=== PATIENT | female | born 1940 | race Caucasian/White ===

== ENCOUNTER 2016-05-04 12:04 | Inpatient (IN) | payer OTHER ==
[2016-05-04 13:44] LABS: % IMMATURE GRANULYOCYTES 0.3 % (0.0-1.1); ABSOLUTE IMMATURE GRANULOCYTES 0.02 10^3/uL (0.00-0.10); ADD DIFF? NO; ADD MORPH? NO; ADD SCAN? NO; ATYPICAL LYMPHOCYTE FLAG 0 (0-99); FRAGMENT RBC FLAG 0 (0-99); HEMATOCRIT 42.5 % (38.0-47.0); HEMOGLOBIN 13.9 g/dL (12.6-16.3); LEFT SHIFT FLG 10 (0-99); LIPEMIA HEMOLYSIS FLAG 80 (0-99); MEAN CELL HEMOGLOBIN 31.1 pg (27.9-34.1); MEAN CELL HEMOGLOBIN CONCENTR. 32.7 g/dL (32.4-36.7); MEAN CELL VOLUME 95.1 fL (81.5-99.8); MEAN PLATELET VOLUME 9.6 fL (8.7-11.7); PLATELET CLUMPS FLAG 10 (0-99); PLATELET COUNT 210 10^3/uL (150-400); RED BLOOD CELL COUNT 4.47 10^6/uL (4.18-5.33); RED CELL DISTRIBUTION WIDTH 13.3 % (11.5-15.2)
[2016-05-04] MEDS ORDERED: ACETAMINOPHEN 325 MG TAB PO ONE (13:44)
--- NOTE | 2016-05-04 13:44 | EDPHY ---
H & P Time Seen by Provider: 05/04/16 12:44 HPI/ROS: CHIEF COMPLAINT: Cough, hypoxia HISTORY OF PRESENT ILLNESS: 75-year-old female presents with cough and hypoxia. Onset of sore throat and productive cough yesterday. Associated with chills and subjective fever. She went to the clinic today because of the sore throat and they noticed her oxygen saturation was 80% on room air. Duoneb and Prednisone 60mg orally given without change. Flu swab negative. She feels excessively sleepy today. She denies change in shortness of breath. She has ongoing shortness of breath which is intermittent and sometimes occurs when she gets up suddenly from a chair. She has a 2 year history of cough and has been diagnosed with COPD. REVIEW OF SYSTEMS: Eyes: No visual changes ENT: No sore throat Cardiac: No chest pain Gastrointestinal: No nausea, no vomiting, no abdominal pain Genitourinary: no dysuria Musculoskeletal: No leg pain or swelling Skin: No rash Neurological: No headache, no weakness Psychiatric: No depression Past Medical/Surgical History: COPD Social History: No alcohol Smoking Status: Former smoker Physical Exam: General Appearance: Drowsy, normal respiratory rate Eyes: Pupils equal and round, no conjunctival pallor or injection ENT, Mouth: Mucous membranes moist Neck: Normal inspection Respiratory: rales at bases bilaterally Cardiovascular: Regular rate and rhythm Gastrointestinal: Abdomen is soft and nontender Neurological: A&O, nonfocal, normal gait Skin: Warm and dry, no rash Extremities: no tenderness Psychiatric: Mood and affect normal Constitutional: Initial Vital Signs Temperature (C) 38.1 C 05/04/16 12:15 Heart Rate 72 05/04/16 12:15 Respiratory Rate 18 05/04/16 12:15 Blood Pressure 100/65 05/04/16 12:15 O2 Sat (%) 81 L 05/04/16 12:15 O2 Delivery Mode Nasal Cannula O2 (L/minute) 1 Allergies/Adverse Reactions: No Known Allergies Allergy (Unverified 05/04/16 15:19) Home Medications: Medication Instructions Recorded Albuterol [Proventil Inhaler HFA 2 puffs IH Q6H PRN 05/04/16 (*)] Cholecalciferol Vit D3 [Vitamin D3 3,000 units PO DAILY 05/04/16 (*)] Clobetasol 0.05% [Temovate 1 kirti TP Q3D PRN 05/04/16 Ointment] Estradiol [Estrace Vaginal (*)] 1 gm VG Q4D 05/04/16 Herbals/Supplements -Info Only 1 ea PO DAILY 05/04/16 Ibuprofen [Motrin (*)] 200 mg PO Q6H PRN 05/04/16 Lisinopril [Zestril 20 mg (*)] 20 mg PO HS 05/04/16 Multivitamins [Multivitamin (*)] 1 each PO DAILY 05/04/16 Nature-Throid 32.5 Mg Tablet 32.5 mg PO DAILY@05/04/16 Polyethylene Glycol 3350 [Miralax 17 gm PO DAILY PRN 05/04/16 17 gm (*)] Triamcinolone 0.5% [Triamcinolone 1 kirti TP BID PRN 05/04/16 0.5% Cream (*)] Umeclidinium Brm/Vilanterol Tr 1 puffs IH DAILY 05/04/16 [Anoro Ellipta 62.5-25 Mcg INH] Medical Decision Making - Diagnostics Imaging: CT pulmonary angiogram read by Dr. Martinez reveals a diffuse bilateral reticulonodular pattern, consistent with bronchiolitis and bronchiectasis. No definite infiltrate. ED Course/Re-evaluation: Patient presents with flu-like symptoms and hypoxia. Oxygen saturation 96% on 4 L by nasal cannula. Given her excessive drowsiness, an ABG was performed to rule out CO2 retention, PC02 44. Chest x-ray reveals no acute infiltrate. Given that D-dimer is positive and she has a nodular pattern on her chest x-ray , CT pulmonary angiogram was ordered. There is no evidence acute pulmonary embolism on CT scan. She does have a chronic appearing reticular nodule pattern on the CT scan, consistent with bronchiectasis and bronchiolitis. Flu swab returned as positive for influenza B. Tamiflu 75 mg orally given. She already received steroids in the clinic and does not have wheezing on exam. She received one nebulized breathing treatment in the ED. Blood cultures drawn , but no abx given, since there is no evidence of bacterial pneumonia. The hospitalist service was consulted for influenza and hypoxia. Differential Diagnosis: includes though not limited to PE, pneumonia, PTX, empyema. - Data Points Laboratory Results: Laboratory Results 05/04/16 13:30 05/04/16 13:30 Microbiology Results: MICROBIOLOGY 05/04/16 13:45 Blood Blood Culture - Preliminary 05/04/16 13:30 Blood Blood Culture - Preliminary Medications Given: Discontinued Medications Acetaminophen (Tylenol) 650 mg PO EDNOW ONE Stop: 05/04/16 13:45 Last Admin: 05/04/16 13:56 Dose: 650 mg Albuterol (Proventil Neb) 3 ml IH EDNOW ONE Stop: 05/04/16 16:05 Last Admin: 05/04/16 16:15 Dose: 3 ml Sodium Chloride (Ns) 1,000 mls @ 0 mls/hr IV ONCE ONE PRN Reason: Wide Open Stop: 05/04/16 14:06 Last Admin: 05/04/16 14:05 Dose: 1,000 mls Sodium Chloride (Ns) 1,000 mls @ 100 mls/hr IV CONT BERNA Stop: 05/05/16 20:14 Last Admin: 05/05/16 10:47 Dose: 1,000 mls Sodium Chloride (Ns) 250 mls @ 250 mls/hr IV ONCE ONE Stop: 05/05/16 18:25 Last Admin: 05/05/16 22:08 Dose: 250 mls Ibuprofen (Motrin) 200 mg PO Q6H PRN PRN Reason: Pain, Inflammatory Stop: 10/31/16 16:58 Last Admin: 05/05/16 12:59 Dose: 200 mg Oseltamivir Phosphate (Tamiflu) 75 mg PO EDNOW ONE Stop: 05/04/16 15:46 Last Admin: 05/04/16 15:59 Dose: 75 mg Departure - Departure Disposition: [facility] Inpatient Acute Clinical Impression: Influenza B, Hypoxia COPD (chronic obstructive pulmonary disease) Qualifiers: COPD type: unspecified COPD Qualified Code(s): J44.9 - Chronic obstructive pulmonary disease, unspecified Condition: Fair
[2016-05-04 13:53] LABS: INR 1.05 (0.83-1.16); PROTIME(PATIENT) 13.6 SEC (12.0-15.0)
[2016-05-04 13:54] LABS: APTT 29.9 SEC (23.0-38.0)
[2016-05-04] MEDS ORDERED: NS 1,000 ML IV ONE (14:05)
[2016-05-04 14:09] LABS: BASE EXCESS 0.5 mEq/L (-2.5-2.5); BICARBONATE 25 mEq/L (22-26); MEASURED OXYGEN SATURATION 95 % (92-95); PCO2 44 mmHg (34-38); PO2 77 mmHg (65-75); TCO2 27 mEq/L (23-27)
[2016-05-04 14:12] LABS: ANION GAP 10 mEq/L (8-16); BILIRUBIN,TOTAL 0.7 mg/dL (0.1-1.4); CALCIUM 8.7 mg/dL (8.5-10.4); CARBON DIOXIDE 28 mEq/l (22-31); CHLORIDE 97 mEq/L (97-110); CREATININE 0.9 mg/dL (0.6-1.0); GLOMERULAR FILTRATION RATE > 60; GLUCOSE 95 mg/dL (70-100); POTASSIUM 4.5 mEq/L (3.5-5.2); SODIUM 135 mEq/L (134-144)
[2016-05-04] MEDS ORDERED: IOPAMIDOL (ISOVUE-370) 150 ML BTL IV ONE (14:33)
[2016-05-04] MEDS ORDERED: OSELTAMIVIR PHOSPHATE 75 MG CAP PO ONE (15:45)
[2016-05-04] MEDS ORDERED: ALBUTEROL 3 ML DEYVIAL IH ONE (16:04)
[2016-05-04] MEDS ORDERED: TRIAMCINOLONE 0.5% 15GM CREAM TP PRN (16:59)
[2016-05-04] MEDS ORDERED: POLYETHYLENE GLYCOL 3350 17 GM PKT PO PRN (16:59)
[2016-05-04] MEDS ORDERED: CLOBETASOL 0.05% 15 GM OINT TUBE TP PRN (16:59)
[2016-05-04] MEDS ORDERED: ACETAMINOPHEN 325 MG TAB PO PRN (17:07)
[2016-05-04] MEDS ORDERED: IPRATROPIUM/ALBUTEROL 3 ML DEYVIAL IH PRN (17:07)
[2016-05-04] MEDS ORDERED: ONDANSETRON 4 MG/2 ML VIAL IVP PRN (17:07)
--- NOTE | 2016-05-04 17:32 | GHP ---
DATE OF ADMISSION: 05/04/2016 CHIEF COMPLAINT: Shortness of breath and cough. HISTORY OF PRESENT ILLNESS: A 75-year-old female with history of pneumonia, a former smoker, went t o the clinic today due to sore throat where she was found to have oxygen saturation of 80% on room a ir. She tells me she has had a dry annoying cough the past few months. Over the past few days the cough has become productive with worsening shortness of breath, as well as some fevers and joint aches. She denies any chest pain. In the emergency department she was found to be positive for influenza B. PAST MEDICAL HISTORY: 1. Pneumonia. 2. Tobacco use. 3. Reactive airway disease and possible chronic obstructive pulmonary disease. 4. Hypertension. 5. Hypothyroidism. PAST SURGICAL HISTORY: 1. Bilateral total knee arthroplasty. 2. Appendectomy. 3. Hand surgery. HOME MEDICATIONS: Were reviewed, refer to [employer] for details. ALLERGIES: No known drug allergies. SOCIAL HISTORY: She lives in [place]. She has a 50-pack year smoking history, but quit smoking some time ago. She denies any alcohol use. FAMILY HISTORY: Significant for COPD. REVIEW OF SYSTEMS: Comprehensive 10-point review of systems was done and is negative except for as mentioned in the HPI. PHYSICAL EXAM: VITAL SIGNS: Blood pressure 105/60, pulse 63, respiratory rate 20, O2 sat 100% on 3 L. Temperature afebrile. Room air saturation was 81% on room air. GENERAL: No acute distress. HEAD: Normocephalic, atraumatic. EYES: PERRLA. Sclerae anicteric. NECK: Supple. No lymphadenop athy. CARDIOVASCULAR: S1-S2, no JVD. No lower extremity edema. PULMONARY: Lungs are clear with d iminished breath sounds in bilateral bases. No wheezes or rales. No dullness to percussion. There is slight increased respiratory effort. There is a persistent cough. ABDOMEN: Soft, nontender, no ndistended. No guarding or rebound tenderness. Normoactive bowel sounds. EXTREMITIES: No clubbin g or cyanosis. NEURO: Cranial nerves 2-12 grossly intact. No focal motor or sensory deficits. SK IN: Clear, no rashes. DIAGNOSTICS: Influenza A and B were positive for flu B by PCR. WBC 7, hemoglobin 13.9, hematocrit 42.5, platelets 210. D-dimer was elevated at 0.61. Sodium 135, potassium 4.5, chloride 97, CO2 28, BUN 24, creatinine 0.9, glucose 95. Chest CT, which I visualized, as well as reviewed the radiology report, was negative for PE. There is mild atherosclerotic aorta with borderline aneurysm. There is bilateral bronchiolitis with bilat eral peribronchial thickening with cylindrical bronchiectasis, reticular nodular opacities in bilate ral upper lobes, as well as the posterior segment of the right upper and superior segments of the bi lateral lower lobes. There is no pleural effusion, pneumothorax or significant adenopathy. ASSESSMENT AND PLAN: This is a 75-year-old female presenting with: 1. Acute hypoxemic respiratory failure in the setting of CT of the chest showing bilateral bronchio litis with bilateral peribronchial thickening, bronchiectasis, and reticulonodular opacities in bila teral upper lobes, possibly representing acute viral pneumonitis versus underlying bronchiectasis an d exacerbation of underlying chronic obstructive pulmonary disease. PLAN: 1. The patient will be placed on observation, where she will be monitored with continuous pulse oxi metry. I will ask for Pulmonology to see her in the morning. We will continue with bronchodilator treatment and consider adding steroids if her respiratory status is not improving over night. 2. Influenza B. The patient has been started on Tamiflu in the emergency department which will be continued. 3. History of hypertension that appears well-controlled. 4. Continue home medications and monitor. /[id number]/MODL
[2016-05-04] MEDS: IBUPROFEN 200 MG TAB PO PRN (17:42)
[2016-05-04] MEDS: guaiFENesin 600 MG TAB.ER PO SCH (20:35)
[2016-05-04] MEDS: CEPACOL LOZENGE PO PRN (20:39)
[2016-05-04] MEDS ORDERED: LISINOPRIL 20 MG TAB PO SCH (21:00)
[2016-05-05] MEDS: IBUPROFEN 200 MG TAB PO PRN ×3 (04:58→18:35)
[2016-05-05] MEDS: NATURE THROID 32.5 MG PO SCH (04:58)
[2016-05-05] MEDS: guaiFENesin 600 MG TAB.ER PO SCH ×2 (08:46→20:23)
[2016-05-05] MEDS: OSELTAMIVIR PHOSPHATE 75 MG CAP PO SCH ×2 (08:46→17:28)
[2016-05-05] MEDS: CHOLECALCIFEROL VIT D3 2,000 UNITS TAB/CAP PO SCH (08:46)
[2016-05-05] MEDS: MULTIVITAMINS 1 EACH TAB PO SCH (08:46)
[2016-05-05] MEDS: ENOXAPARIN 40 MG/0.4 ML SYR SC SCH ×2 (08:46→08:49)
[2016-05-05] MEDS: Umeclidinium Brm/Vilanterol Tr [Anoro Ellipta 62.5-25 Mcg Inh] IH SCH (08:47)
[2016-05-05] MEDS ORDERED: Herbals/Supplements -Info Only PO SCH (09:00)
[2016-05-05] MEDS ORDERED: ESTRADIOL 42.5 GM CRTUBE VG SCH (09:00)
--- NOTE | 2016-05-05 09:03 | HOSPPROG ---
Hospitalist Progress Note Assessment/Plan: Patient is a 75-year-old female who presented to the emergency room with shortness of breath and cough. Patient has a history of pneumonia, a former smoker. Today is my 1st encounter with the patient. Chart reviewed. * Acute hypoxemic respiratory failure - acute viral pneumonitis verses underlying bronchiectasis and exacerbation of underlying COPD - patient does not want to be placed on steroids - will continue supportive therapy with bronchodilators - pulmonology to see * influenza B - on treatment * hypertension - currently hypotensive / place monitors on when to hold her blood pressure medication -will hydrate due to the hypotension * DVT prophylaxis - low molecular weight heparin * plan. Patient will require another midnight stay due to O2 needs as well as low blood pressure. Hydrate her overnight and recheck labs in the morning. Will wait for further input from Dr. Reyez Subjective: Reina is complaining of a persistent cough. She also has a sore throat. Objective: Vital Signs Temp Pulse Resp BP Pulse Ox 36.9 C 60 16 93/49 L 93 05/05/16 08:11 05/05/16 08:55 05/05/16 08:11 05/05/16 08:55 05/05/16 08:55 05/04/16 05/05/16 05/06/16 05:59 05:59 05:59 Intake Total 1300 Output Total 175 Balance 1125 PT 13.6 SEC (12.0-15.0) 05/04/16 13:30 INR 1.05 (0.83-1.16) 05/04/16 13:30 - Physical Exam Constitutional: obese, uncomfortable Eyes: PERRL Ears, Nose, Mouth, Throat: hearing normal Cardiovascular: regular rate and rhythym Respiratory: no respiratory distress, reduced air movement ( Bibasilar) Gastrointestinal: normoactive bowel sounds Skin: warm Musculoskeletal: no muscle tenderness Neurologic: AAOx3 Psychiatric: interacting appropriately, not anxious ICD10 Worksheet Patient Problems: Problems Problem Status Onset COPD (chronic obstructive pulmonary disease) Acute Hypoxia Acute Influenza B Acute
[2016-05-05] MEDS ORDERED: NS 1,000 ML IV SCH (10:15)
[2016-05-05] MEDS ORDERED: NS 250 ML IV ONE (17:26)
[2016-05-05] MEDS: PANTOPRAZOLE SODIUM 40 MG TAB PO SCH (18:04)
[2016-05-05] MEDS: IPRATROPIUM/ALBUTEROL 3 ML DEYVIAL IH SCH ×2 (19:07→22:34)
[2016-05-05] MEDS: CEPACOL LOZENGE PO PRN (20:24)
--- NOTE | 2016-05-05 21:28 | GCON ---
PULMONARY CONSULTATION DATE OF CONSULTATION: 05/05/2016 REASON FOR CONSULTATION: Shortness of breath, hypoxemia associated with influenza B, pneumonia. HISTORY: The patient is a pleasant 75-year-old who was admitted 2 days ago with increasing shortnes s of breath and hypoxemia. She was found to have influenza B on admission. CT scan of the chest wa s done, which showed some mild cylindrical bronchiectasis mostly in the upper lobes with some small areas of nodular infiltrates. No consolidative or diffuse pneumonia was present. She has had some cough and mucus, fatigue and malaise, fevers and achy joints. She does have a history of tobacco abuse. She started smoking when she was 13 and smoked for about 25 years up to 2 packs of cigarettes per day. She has never been definitely told she had COPD. No emphysema was seen on recent CT scan. Since admission, she has been treated with Tamiflu and duo nebs. She does not want to be placed on systemic steroids or inhaled steroids. She has recently been taking Anoro. She has a variety of ot her inhalers at home including inhaled steroids, which she has tried in the past without significant benefit. She is feeling somewhat better since admission. She remains on low-flow oxygen at 1 L. She will desat into the 80s without oxygen. She remains quite fatigued, has a cough and congestion, but is unable to bring up any significant mucus at this time. PAST MEDICAL HISTORY: Remarkable for hypertension and hypothyroidism, reactive airways disease, and possible COPD. PAST SURGICAL HISTORY: Bilateral knee replacements, appendectomy, hand surgery. SOCIAL HISTORY: The patient is for the 2nd time, has children and stepchildren. 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 She is no longer smoking. Significant alcohol is denied. FAMILY HISTORY: Noncontributory. REVIEW OF SYSTEMS: Negative except as mentioned above. She denies any heart disease, reflux or GI problems, thromboembolic disease, etc. MEDICATIONS: At home include Anoro, lisinopril, vaginal estradiol, as needed albuterol, and various p.r.n. medications. PHYSICAL EXAMINATION: GENERAL: Reveals a pleasant woman, somewhat overweight, resting comfortably in bed. She has an intermittent congested cough. VITAL SIGNS: Blood pressure is approximately 100 /50, heart rate 60 and regular, saturations on 1 L are in the low 90s. She is afebrile. HEENT: Un remarkable for lymphadenopathy or thyromegaly. There is no jugular venous distention. There is no pharyngitis. PULMONARY: The chest reveals bibasilar rales approximately 1/4 to 1/3 toward the rita om. These are fairly scattered. With cough there is central congestion and expiratory coarseness/w heezing. There are no kiera rhonchi. With forced exhalation, she does have some scattered bilatera l wheezes. HEART: Regular in rate and rhythm. There is no gallop. P2 appears normal. There is a soft systolic murmur. ABDOMEN: Soft, nontender. Bowel sounds are present. There is no obvious o rganomegaly. EXTREMITIES: Unremarkable for significant edema. There are no cords, no tenderness. NEUROLOGIC: Examination is nonfocal/intact. CT scan of the chest is as outlined above. It was done with contrast, and there is no evidence of t hromboembolic disease. Bronchial wall thickening, bronchiectasis, and scattered fairly minimal uppe r lobe areas of reticular infiltrate are present. LABORATORY: White blood cell count 7000, hematocrit 42. Platelets are normal. PT and PTT were nor mal on admission. Arterial blood gas on 4 L yesterday showed a pH of 7.38, pCO2 44, and pO2 of 77. Chemistries are within normal limits. BNP is normal. PCR was positive for influenza B. ASSESSMENT: 1. Influenza B, bronchopneumonia. There does appear to be diffuse airway involvement, as she has s ignificant congestion and wheezing. There also appears to be parenchymal involvement with scattered areas of reticular nodular infiltrate. Separate from this, she has evidence of some bronchiectasis and chronic airway thickening likely secondary to chronic lung disease and previous tobacco abuse. She is being treated with Tamiflu and is doing well. Oxygen requirements are not excessive. I do believe that she would feel better and improve faster with steroids, even inhaled steroids, however, she is against this treatment at the present time. Bronchodilator therapy is appropriate and will be continued. Tamiflu will be continued. 2. Probable chronic obstructive pulmonary disease. She does have a significant tobacco history, page s been on inhalers in the past, and likely does have a component of significant chronic obstructive pulmonary disease. Pulmonary function studies will be needed. These can be done as an outpatient. Screening spirometry can be done here and will be requested. She does have an exacerbation seconda ry to the influenza B infection. Please see the comments above. 3. Bronchiectasis. She does have mild cylindrical bronchiectasis. The associated nodularity may b e secondary to influenza B or may be inflammatory nodules associated with her bronchiectasis. Her b ronchiectasis is somewhat atypical as it involves upper lobes posteriorly and the upper part of the lower lobes. Unusual organisms, JANETTE, or fungal organisms could be involved chronically in a relativ loy subclinical fashion, however, I think this is unlikely. However, further decisions regarding th is can be made as an outpatient after she recovers from her current infection. Bronchoscopy is not indicated. PLANS/RECOMMENDATIONS: Current treatment in the hospital will be continued. I anticipate she will need another couple a days of inpatient treatment. Bronchodilator therapy and Tamiflu is appropriat e. I will discuss inhaled steroids again with her tomorrow, including possibly a trial of nebulized budesonide. Bedside spirometry will be obtained. Further plans and recommendations will be made based on her progress over the next 12-24 hours. Out patient followup in the future will be arranged. /[id number]/MODL
[2016-05-06] MEDS: IPRATROPIUM/ALBUTEROL 3 ML DEYVIAL IH SCH ×3 (05:43→16:43)
[2016-05-06] MEDS: NATURE THROID 32.5 MG PO SCH ×2 (05:58→17:53)
[2016-05-06] MEDS: guaiFENesin 600 MG TAB.ER PO SCH ×2 (07:50→20:09)
[2016-05-06] MEDS: OSELTAMIVIR PHOSPHATE 75 MG CAP PO SCH ×2 (07:51→17:14)
[2016-05-06] MEDS: MULTIVITAMINS 1 EACH TAB PO SCH (07:51)
[2016-05-06] MEDS: PANTOPRAZOLE SODIUM 40 MG TAB PO SCH (07:52)
[2016-05-06] MEDS: CHOLECALCIFEROL VIT D3 2,000 UNITS TAB/CAP PO SCH (07:52)
[2016-05-06] MEDS: ENOXAPARIN 40 MG/0.4 ML SYR SC SCH (07:54)
[2016-05-06] MEDS: IBUPROFEN 200 MG TAB PO PRN (08:00)
--- NOTE | 2016-05-06 10:03 | HOSPPROG ---
Hospitalist Progress Note Assessment/Plan: Patient is a 75-year-old female who presented to the emergency room with shortness of breath and cough. Patient has a history of pneumonia, a former smoker. Dr Reyez and myself met w the patient. Dr Reyez discussed benefits of oral steroids, inhaled steroids. * Acute hypoxemic respiratory failure - due to acute viral pneumonitis verses underlying bronchiectasis and exacerbation of underlying COPD - patient is reluctant to start on steroids, but willing to do short burst ( total of 8 days)/ starting w 60 mg today - will continue supportive therapy with bronchodilators * influenza B - on treatment * hypertension -hold lisinopril / having low bp *hypotension -bp improved today after receiving iv fluids and bolus yesterday * DVT prophylaxis - low molecular weight heparin * plan. start steroids today/ if improved can go in the next 1-2 days Subjective: Reina is still not feeling well/ not quite ready to be dc. Objective: Vital Signs Temp Pulse Resp BP Pulse Ox 37.0 C 63 18 113/60 90 L 05/06/16 07:56 05/06/16 07:56 05/06/16 07:56 05/06/16 07:56 05/06/16 07:56 05/05/16 05/06/16 05/07/16 05:59 05:59 05:59 Intake Total 1972 Balance 1972 PT 13.6 SEC (12.0-15.0) 05/04/16 13:30 INR 1.05 (0.83-1.16) 05/04/16 13:30 - Physical Exam Constitutional: no apparent distress, appears nourished, not in pain Eyes: PERRL Ears, Nose, Mouth, Throat: hearing normal Cardiovascular: regular rate and rhythym, no murmur, rub, or gallop Respiratory: no respiratory distress, other (crackles bibasilar) Gastrointestinal: normoactive bowel sounds Skin: warm, normal color Musculoskeletal: full muscle strength Neurologic: AAOx3 Psychiatric: interacting appropriately, anxious ICD10 Worksheet Patient Problems: Problems Problem Status Onset COPD (chronic obstructive pulmonary disease) Acute Hypoxia Acute Influenza B Acute Transitional Care Acute
[2016-05-06] MEDS: Umeclidinium Brm/Vilanterol Tr [Anoro Ellipta 62.5-25 Mcg Inh] IH SCH (10:07)
[2016-05-06] MEDS: predniSONE 20 MG TAB PO SCH (10:57)
--- NOTE | 2016-05-06 17:13 | SOAPPROG ---
SOAP Progress Note Assessment/Plan: Assessment: Influenza B bronchopneumonia with associated cough, hypoxemia, mild reticular pulmonary infiltrates. COPD with a component of reversible airways obstruction, with exacerbation secondary to the above. Cylindrical bronchiectasis, primarily in the upper lobes posteriorly. This may be associated with reticular nodular infiltrates, fairly mild. However these infiltrates may be associated with her acute influenza B infection. Outpatient follow-up evaluation will determine.... Plan: Continue bronchodilator treatments and Tamiflu. Continue oxygen as needed to keep saturations in the upper 80s. Recommend a short prednisone burst and taper. This was discussed with the patient at length and she is now agreeable. She will start on 60 mg for a couple a days then taper rapidly. Hopefully, improvement will be seen within the next 24 hours and she can be discharged home for the remainder of her convalescence. Subjective: Still with paroxysms of coughing, shortness of breath, mild hypoxemia. Unable to bring up much sputum. Continues to feel sick, Achy, fatigueds. Objective: Vital Signs Temp Pulse Resp BP Pulse Ox 36.8 C 61 20 135/86 H 94 05/06/16 11:06 05/06/16 16:48 05/06/16 16:48 05/06/16 16:48 05/06/16 16:48 05/05/16 05/06/16 05/07/16 05:59 05:59 05:59 Intake Total 1972 Balance 1972 PT 13.6 SEC (12.0-15.0) 05/04/16 13:30 INR 1.05 (0.83-1.16) 05/04/16 13:30 Physical Exam - Physical Exam General Appearance: alert, no apparent distress EENT: other (Nasal cannula 1-2 L) Neck: normal inspection (No obvious JVD), No lymphadenopathy (R), No lymphadenopathy (L), No thyromegaly Respiratory: decreased breath sounds, rales (By basilar rales persist), wheezing (Mild, scattered and expiration), No rhonchi (But central congestion with cough) Cardiac/Chest: regular rate, rhythm Abdomen: normal bowel sounds, non-tender, soft Back: Normal inspection Skin: normal color, warm/dry Lymphatic: no adenopathy Extremities: No pedal edema Neuro/Psych: no motor/sensory deficits, No cognition abnormalities ICD10 Worksheet Patient Problems: Problems Problem Status Onset Transitional Care Acute Influenza B Acute Hypoxia Acute COPD (chronic obstructive pulmonary disease) Acute
[2016-05-06] MEDS: CEPACOL LOZENGE PO PRN (20:09)
[2016-05-07] MEDS: IPRATROPIUM/ALBUTEROL 3 ML DEYVIAL IH SCH ×3 (00:03→11:06)
[2016-05-07] MEDS: CEPACOL LOZENGE PO PRN (04:00)
[2016-05-07 07:17] VITALS: O2SAT 92
[2016-05-07] MEDS: NATURE THROID 32.5 MG PO SCH (07:23)
[2016-05-07] MEDS: predniSONE 20 MG TAB PO SCH (08:02)
[2016-05-07] MEDS: CHOLECALCIFEROL VIT D3 2,000 UNITS TAB/CAP PO SCH (08:03)
[2016-05-07] MEDS: PANTOPRAZOLE SODIUM 40 MG TAB PO SCH (08:03)
[2016-05-07] MEDS: guaiFENesin 600 MG TAB.ER PO SCH (08:04)
[2016-05-07] MEDS: OSELTAMIVIR PHOSPHATE 75 MG CAP PO SCH (08:04)
[2016-05-07] MEDS: ENOXAPARIN 40 MG/0.4 ML SYR SC SCH (08:05)
[2016-05-07] MEDS: Umeclidinium Brm/Vilanterol Tr [Anoro Ellipta 62.5-25 Mcg Inh] IH SCH (08:09)
[2016-05-07] MEDS: MULTIVITAMINS 1 EACH TAB PO SCH (10:22)
[2016-05-07 11:41] VITALS: BP 129/72; PULSE 72; RESP 16; TEMP 98.2
--- NOTE | 2016-05-07 17:13 | GDS ---
[f rep st] DISCHARGE SUMMARY DISCHARGE DIAGNOSES: 1. Influenza B with bronchopneumonia. 2. Acute hypoxemic respiratory failure. 3. Hypertension. 4. Hypotension. CONSULTATIONS: Dr. Reyez of Pulmonology. STUDIES AND PROCEDURES DONE: CT angio of the chest. PHYSICAL EXAMINATION: GENERAL: The patient is alert. VITAL SIGNS: Afebrile, 36.8, pulse is 72, r espiratory rate 16, blood pressure is 129/72. She is saturating 92% on room air. I have seen and evaluated the patient on the day of discharge. I have also discussed her dispositio n with Dr. Reyez of Pulmonology. HOSPITAL COURSE: The patient is a 75-year-old female who presented to the emergency room with compl aints of shortness of breath. She was evaluated and diagnosed with: 1. Acute hypoxemic respiratory failure. This is secondary to the patient's acute illness. She did receive a consultation from Pulmonology. She was initiated on steroids and supportive management. She was also treated with steroids. 2. Influenza B. The patient has been initiated on Tamiflu and has responded well. 3. Hypertension. We re-initiated her home medications at the time of disposition. 4. Hypotension. This has resolved during this hospitalization. DISPOSITION: The patient will be discharged home independently. I have reviewed her disposition wi th Dr. Kevin Reyez, who will continue her bronchodilators and Tamiflu at the time of disposition. She will also continue prednisone in the outpatient setting. I have provided her prescriptions for prednisone as well as Tamiflu. I have not adjusted any of her previously-prescribed home medication s to the best of my knowledge. Followup will be with her primary care physician, Dr. Nida Medina , as well as Dr. Kevin Reyez. I have spent greater than 35 minutes in the care, coordination, and management of the patient's disp osition. /[id number]/MODL
--- NOTE | 2016-05-07 18:07 | SOAPPROG ---
SOAP Progress Note Assessment/Plan: Assessment: Influenza B bronchopneumonia with associated cough, hypoxemia, mild reticular pulmonary infiltrates. COPD with a component of reversible airways obstruction, with exacerbation secondary to the above. Cylindrical bronchiectasis, primarily in the upper lobes posteriorly. This may be associated with reticular nodular infiltrates, fairly mild. However these infiltrates may be associated with her acute influenza B infection. Outpatient follow-up evaluation will determine.... Plan: Okay for discharge today to finish Tamiflu. Prednisone taper with 40 mg for 2 days, 20 for 2 days, 10 for 2 days then off. I gave her my office number. She is to call for a follow-up appointment with pulmonary function tests to be done in approximately 4 weeks. Further evaluation regarding her chronic lung disease will be done at that time. Follow-up CT scan will be performed in the future. For now she is to continue on Anoro, and albuterol as needed at home. She has both of these. Subjective: Doing better overall. Coughing last night. Off oxygen. Feels better. Objective: Vital Signs Temp Pulse Resp BP Pulse Ox 36.8 C 72 16 129/72 H 92 05/07/16 11:40 05/07/16 11:40 05/07/16 11:40 05/07/16 11:40 05/07/16 11:40 05/06/16 05/07/16 05/08/16 05:59 05:59 05:59 Intake Total 1972 Balance 1972 PT 13.6 SEC (12.0-15.0) 05/04/16 13:30 INR 1.05 (0.83-1.16) 05/04/16 13:30 Physical Exam - Physical Exam General Appearance: alert, no apparent distress EENT: other (On room air: 92%) Neck: normal inspection Respiratory: rales (Bibasilar rales persist), No lungs clear, No normal breath sounds (Improving breath sounds and aeration. Less) Cardiac/Chest: regular rate, rhythm Abdomen: normal bowel sounds, non-tender, soft Back: Normal inspection Skin: normal color, warm/dry Extremities: No pedal edema Neuro/Psych: no motor/sensory deficits, No cognition abnormalities ICD10 Worksheet Patient Problems: Problems Problem Status Onset COPD (chronic obstructive pulmonary disease) Acute Hypoxia Acute Influenza B Acute Transitional Care Acute
[2016-05-07] MEDS ORDERED: OSELTAMIVIR 6 MG/ML UDSYR PO SCH (21:00)
== END 2016-05-07 12:50 | disposition home or self-care (01) | DRG 193 ==
LOC: INTOOBSV 16:04 → F3E 17:05 → OBSVTOIN 05-05 17:26
PROVIDERS: ADMIT Family Medicine; ATTEND Family Medicine
DX: J10.00 Influenza due to other identified influenza virus with unspecified type of pneumonia (principal); J18.0 Bronchopneumonia, unspecified organism; J47.9 Bronchiectasis, uncomplicated; J96.01 Acute respiratory failure with hypoxia; I10 Essential (primary) hypertension; E03.9 Hypothyroidism, unspecified; J44.9 Chronic obstructive pulmonary disease, unspecified; Z87.891 Personal history of nicotine dependence; Z96.653 Presence of artificial knee joint, bilateral; Z87.01 Personal history of pneumonia (recurrent)
CPT/HCPCS: G0378; J1650; Q9967

== ENCOUNTER → 2016-05-04 | Outpatient (CLI) | payer OTHER | LOC: BMCIMAGING 10:06 | PROVIDERS: ATTEND Family Medicine | DX: R91.8 Other nonspecific abnormal finding of lung field (principal); M25.78 Osteophyte, vertebrae ==

== ENCOUNTER → 2017-06-07 | Outpatient (CLI) | payer OTHER | LOC: BMCIMAGING 14:21 | PROVIDERS: ATTEND Podiatrist Foot & Ankle Surgery | DX: M25.871 Other specified joint disorders, right ankle and foot (principal); M25.872 Other specified joint disorders, left ankle and foot ==

== ENCOUNTER → 2018-02-17 | Outpatient (CLI) | payer OTHER | LOC: BMCIMAGING 12:27 | PROVIDERS: ATTEND Family Medicine | DX: J98.09 Other diseases of bronchus, not elsewhere classified (principal); M85.421 Solitary bone cyst, right humerus; M25.811 Other specified joint disorders, right shoulder ==

== ENCOUNTER → 2018-08-02 | Outpatient (CLI) | payer OTHER | LOC: FIMAGING 13:44 ==

== ENCOUNTER → 2018-08-15 | Outpatient (CLI) | payer OTHER | LOC: BMCIMAGING 11:28 ==